=== PATIENT | female | born 1980 | race Caucasian/White ===

== ENCOUNTER → 2017-08-24 07:15 | Outpatient (CLI) | payer BC, SELFPAY ==
--- NOTE | 2017-08-24 10:54 | NEURO ---
NCS and/or EMG Patient Report Ordering Doctor: Bunny Hanks DATE OF SERVICE: 08/24/17 This is a left upper extremity EMG and nerve conduction study are formed on this 37-year-old left-handed female with tingling and pain in the first 3 digits of her left hand as well as one half of her fourth digit on her left hand. She is left-handed. She had an injury to her left elbow as well and had an ulnar decompression in 2009. Left upper extremity sensory and motor nerve conduction studies performed. The median sensory response is not obtainable. The median motor response demonstrates severely prolonged distal latency with severe reduction of amplitude and conduction velocity. The ulnar motor and sensory and radial sensory responses normal. The median F-wave is severely prolonged compared to the ulnar F wave. Left upper extremity needle electromyography was performed. Muscles evaluated included the first dorsal interosseous, abductor pollicis brevis, brachioradialis, biceps, triceps, and deltoid muscles. The abductor pollicis brevis muscle did demonstrate increase insertional activity with 2+ fibrillation potentials and large motor units. All other muscles demonstrated normal insertional activity with absence of pathologic spontaneous activity. Motor unit potential recruitment pattern and amplitude was normal. Impression: Abnormal left upper extremity electrophysiologic study consistent with severe carpal tunnel syndrome at the wrist.
== END ==
LOC: PSN 07:16
PROVIDERS: PCP Nurse Practitioner Family; Visit Provider Orthopaedic Surgery
DX: R20.8 Other disturbances of skin sensation (principal); G56.02 Carpal tunnel syndrome, left upper limb
CPT/HCPCS: 95860; 95886; 95909

== ENCOUNTER 2017-11-01 11:32 | Day surgery (SDC) | payer BC, SELFPAY ==
--- NOTE | 2017-11-01 11:32 | DT_ITS ---
This patient was seen during an EMR downtime October 25, 2017 - November 01, 2017. This patient may have a combination of paper and electronic documentation or all paper documentation. All documentation is viewable within the e-chart portion of [facility] for each patient visit.
--- NOTE | 2017-11-01 14:35 | PCM.IMDPSTOP ---
Immediate Post-Op Note Date of Procedure: 11/01/17 Primary Surgeon/Physician: Xu Montanez information technology architect: none Pre-Operative Diagnosis: left CTS Post-Operative Diagnosis: same Surgery/Procedure Performed:: left RDTCL Description of Surgical Findings:: see op note Estimated Blood Loss: 0 Specimen's removed: 0 Type of Anesthesia:: Block,Regional ASA Class: ASA2 Mod Systematic Disease - Admit VTE Documentation VTE Present on Admission: No VTE Mechan Device Prophylaxis: SCD's VTE Pharm Prophylaxis ordered?: No Reason prophylaxis not ordered:: Treatment Not Indicated
--- NOTE | 2017-11-01 14:55 | OP.PN_ITS ---
Immediate Post-Op Note Date of Procedure: 11/01/17 Primary Surgeon/Physician: Xu Montanez transactional attorney: none Pre-Operative Diagnosis: left CTS Post-Operative Diagnosis: same Surgery/Procedure Performed:: left RDTCL Description of Surgical Findings:: see op note Estimated Blood Loss: 0 Specimen's removed: 0 Type of Anesthesia:: Block,Regional ASA Class: ASA2 Mod Systematic Disease - Admit VTE Documentation VTE Present on Admission: No VTE Mechan Device Prophylaxis: SCD's VTE Pharm Prophylaxis ordered?: No Reason prophylaxis not ordered:: Treatment Not Indicated
== END 2017-11-01 16:15 | disposition home or self-care (01) ==
LOC: SDC 11:33
PROVIDERS: Family Provider Nurse Practitioner Family; PCP Nurse Practitioner Family; Visit Provider Orthopaedic Surgery
PROC: (CPT 64721; principal; 2017-11-01 13:30)
DX: G56.02 Carpal tunnel syndrome, left upper limb (principal); E03.9 Hypothyroidism, unspecified; F41.9 Anxiety disorder, unspecified; F32.9 Major depressive disorder, single episode, unspecified; E66.3 Overweight; Z68.34 Body mass index [BMI] 34.0-34.9, adult; F17.210 Nicotine dependence, cigarettes, uncomplicated; Z98.51 Tubal ligation status; Z79.899 Other long term (current) drug therapy
CPT/HCPCS: 01810; 64721; J7120; C1758

== ENCOUNTER 2017-12-27 13:54 | Day surgery (SDC) | payer BC, SELFPAY ==
[2017-12-27 14:00] VITALS: BP 158/108; PULSE 80; RESP 16; TEMP 36.6; O2SAT 99; BMI 35.8
[2017-12-27] MEDS: Cefazolin 2 GM in 0.9% Normal Saline 100 ML IV (15:06)
--- NOTE | 2017-12-27 15:29 | PCM.IMDPSTOP ---
Immediate Post-Op Note Date of Procedure: 12/27/17 Primary Surgeon/Physician: Xu Montanez senior technical program manager: none Pre-Operative Diagnosis: CTS Right Post-Operative Diagnosis: Same Surgery/Procedure Performed:: Right carpal tunnel release Description of Surgical Findings:: see op note Estimated Blood Loss: 0 Specimen's removed: 0 Type of Anesthesia:: BlockBeclabito ASA Class: ASA2 Mod Systematic Disease - Admit VTE Documentation VTE Present on Admission: No VTE Mechan Device Prophylaxis: None VTE Pharm Prophylaxis ordered?: No Reason prophylaxis not ordered:: Treatment Not Indicated
[2017-12-27 15:34] VITALS: BP 147/100; BP 158/108; PULSE 64; RESP 18; TEMP 36.7; O2SAT 100
[2017-12-27 15:45] VITALS: BP 158/108; BP 158/97; PULSE 64; RESP 18; O2SAT 100
[2017-12-27 16:00] VITALS: BP 158/108; BP 161/107; PULSE 66; RESP 18; TEMP 36.8; O2SAT 99
[2017-12-27 17:12] VITALS: BP 158/108
== END 2017-12-27 17:13 | disposition home or self-care (01) ==
LOC: SDC 13:54 → AC 13:55
PROVIDERS: Family Provider Nurse Practitioner Family; PCP Nurse Practitioner Family; Visit Provider Orthopaedic Surgery
PROC: (CPT 64721; principal; 2017-12-27 15:00)
DX: G56.01 Carpal tunnel syndrome, right upper limb (principal); F32.9 Major depressive disorder, single episode, unspecified; F41.9 Anxiety disorder, unspecified; E03.9 Hypothyroidism, unspecified; Z87.891 Personal history of nicotine dependence; Z68.34 Body mass index [BMI] 34.0-34.9, adult; E66.3 Overweight
CPT/HCPCS: 01810; 64721; J7120

== ENCOUNTER → 2022-01-19 | Outpatient (CLI) | payer BC, SELFPAY ==
--- NOTE | 2022-01-19 09:49 | RAD_ITS ---
STUDY: X-RAY - ABDOMEN/PELVIS REASON FOR EXAM: Female, 41 years old. Kidney stones. TECHNIQUE: Single AP view of the abdomen / pelvis on 2 images. COMPARISON: None. FINDINGS: Normal visualized lung bases. There is an unremarkable bowel gas pattern. There is no demonstrated free abdominal air. The visualized liver, spleen and kidneys are grossly normal in size and morphology. Normal soft tissue structures. Normal visualized osseous structures. RAD/Abdomen Single View IMPRESSION: Normal x-ray examination of the abdomen and pelvis. No calcifications projected over the renal shadows. Electronically Signed: Jaydon Howard, at 11:24 EDT ,
== END | disposition home or self-care (01) ==
PROVIDERS: PCP Nurse Practitioner Family; Referring Provider Urology; Visit Provider Urology
DX: N20.0 Calculus of kidney (principal)
CPT/HCPCS: 74018

== ENCOUNTER → 2022-10-02 | Outpatient (CLI) | payer BC, SELFPAY ==
--- NOTE | 2022-10-02 14:06 | RAD_ITS ---
STUDY: X-RAY - ABDOMEN/PELVIS REASON FOR EXAM: Female, 42 years old. KUB- STONES TECHNIQUE: Single AP view of the abdomen / pelvis. COMPARISON: Comparison is made with prior study January 19, 2022. FINDINGS: There is a moderate amount of colonic fecal material. The visualized liver, spleen and kidneys are grossly normal in size and morphology. There are calcified phleboliths in the pelvis. Normal visualized osseous structures. RAD/Abdomen Single View IMPRESSION: Phleboliths are seen in the pelvis. Stable examination. Electronically Signed: Connor Ribeiro MD at 15:23 EDT ,
== END | disposition home or self-care (01) ==
LOC: MTRAD 14:03
PROVIDERS: PCP Nurse Practitioner Family; Referring Provider Urology; Visit Provider Urology
DX: N20.0 Calculus of kidney (principal)
CPT/HCPCS: 74018